=== PATIENT | female | born 1955 ===

== ENCOUNTER 2022-10-31 12:45 | Inpatient (IN) | payer MEDICARE, OTHER, SELFPAY ==
[2022-10-28 12:09] VITALS: BMI 29.7
[2022-10-30] VITALS (27 sets, daily range): BP systolic 58–139; BP diastolic 33–64; PULSE 60–83; RESP 11–23; TEMP 35.6–36.7; O2SAT 98–100; BMI 29.7
--- NOTE | 2022-10-30 | PATH_ITS ---
[facility] Accession Number: [id number] No. of containers..01 Tissue . 01 Material submitted: . uterus - UTERUS, BILATERAL FALLOPIAN, TUBES, LEFT OVARY . 01 Diagnosis: Uterus, Bilateral Fallopian Tubes and Left Ovary: Uterus, morcellated fragments, weight: 32 grams in aggregate. Inactive endometrium without evidence of atypia, hyperplasia or malignancy, in apprenticeship representative sections. Benign bilateral fallopian tubes and paratubal cyst. Benign ovary, left side. Negative for atypia and malignancy. MRV 11/07/2022 1434 Local . 01 Electronically signed: . Norma Coker MD, Pathologist NPI- [id number] . 01 Gross description: . The specimen is received in formalin labeled with the patient's name, , and uterus, bilateral fallopian tubes, left ovary consist of multiple morcellated fragments of pink-hagen uterine soft tissue aggregating to 6.8 x 5.5 x 2.5 cm and weighing 32 grams. A cervix is not identified. Minimal red-hagen endometrial tissue is noted measuring 2.1 x 0.5 cm. No polyps or lesions are seen. The tissue is sectioned to reveal an endometrium measuring 0.2 cm in thickness and a pale pink trabecular myometrium measuring 1.3 cm in thickness. No leiomyomatous nodules are seen. Also received in the container is a violaceous fimbriated fallopian tube with attached white-pink rubbery ovary. The fallopian tube measures 3.2 cm in length and 0.8 cm in diameter. A single serous fluid-filled, smooth lined paratubal cyst is noted measuring 0.4 cm in greatest dimension. The external surface is inked black. The corresponding ovary measures 1.7 x 1.1 x 0.7 cm and weighs 1 gram. The ovary is sectioned to reveal the usual pink-hagen homogeneous parenchyma with no cyst or lesion seen. Ciso sections are submitted as follows: A1: Endomyometrium. A2-A3: Fallopian tube, fimbriae and paratubal cyst entirely submitted. A4: Ovary. ([id number]) /MRV 11/04/2022 1222 Local . 01 Pathologist provided ICD-10: N81.10, N81.4 . 01 CPT . 457448 Specimen Comment: A courtesy copy of this report has been sent to [phone] Performed at: 01 [facility] [address] [place] [address], [place], [place] [id number] MD Geoff Bravo MD Phone: [phone]
[2022-10-30] MEDS: LACTATED RINGERS 1,000 ML 84 ML IV ×2 (12:40→14:47)
--- NOTE | 2022-10-30 13:45 | PM.PREOP ---
Pre-operative Note COVID-19 COVID-19 status: Not tested Criteria for continued procedure: Non-surgical alternatives not available or appropriate per current SOC Interval Note History & Physical reviewed/Exam performed by Physician: Yes Changes to H&P: No
[2022-10-30] MEDS: CEFAZOLIN 2 GM/100 ML PREMIX 100 ML IV (14:00)
--- NOTE | 2022-10-30 14:33 | SUR.OPER ---
Lithotomy on padded OR bed. [place] Pad Positioner under torso. Head on pillow, arms padded and tucked at sides. Legs secured in padded yellow fins stirrups.
[2022-10-30] MEDS: BUPIVACAINE 0.5% (PF) 30 ML, EPINEPHrine 0.15 MG INJ (14:43)
[2022-10-30] MEDS: ROPIVACAINE 0.2% PF 2 MG/ML 20ML AMP 20 ML INJ (17:08)
--- NOTE | 2022-10-30 18:31 | P.OP_ITS ---
Operative Date/Time/Diagnoses Date of procedure: 10/30/22 Time of procedure: 14:30 Pre-op diagnosis: Uterovaginal prolapse, incomplete Cystocele Post-op diagnosis: same Procedure & Clinicians Procedure: Procedures Operation Date: 10/30/22 13:30 Actual Procedure Side Surgeon p Total Laparoscopic Hysterectomy, bilateral salingectomy, left oophorectomy, Laparoscopic Uteral sacral vault suspension, repair of incidental cystotomy Pierre Tracy MD s Anterior Colporrhaphy Pierre Tracy MD Indications: Shelia is a 66-year-old , LMP in her early 40s at the time of endometrial ablation, who presents today for evaluation of an age 12 month history of vaginal bulging and pelvic pressure.? Patient experienced menarche at age 13 and had irregular menses through most of her reproductive life.? She would 1 spontaneous vaginal of a 7 lb 10 oz infant and subsequently had a section for compound presentation with the infant weighing 9 lb 5 oz. patient had a tubal ligation 1983 and in her early 40s underwent right salpingo oophorectomy with endometrial ablation.? She is had no vaginal bleeding since that time.? She developed menopausal symptoms in her early to mid 50s but has never been on hormone replacement therapy.? Patient's Paps have always been normal with her most recent in March of this year.? Her mammograms have also been normal and her mammogram is current.? Patient has noted bulging per vagina for the last 8-12 month associated with some pelvic pressure and also intercourse has become uncomfortable because of the prolapse.? Patient's bladder symptoms are limited to urinary frequency and urge incontinence which has been treated by her primary care using oxybutynin.? She is had good response to the oxybutynin but would prefer not to take any medications if not absolutely necessary. The origins of contributing factors for pelvic organ prolapse were discussed at length with the patient.? Also discussed was the nature of atrophic vaginitis and potential contributions to her bladder symptoms.? Written information provided to the patient regarding pelvic organ prolapse, pessary use, vaginal estrogen support, anterior colporrhaphy, and hysterectomy as part of prolapse treatment. After consideration of all options, the patient has decided to move forward with total laparoscopic hysterectomy, bilateral salpingo oophorectomy, laparoscopic uterosacral vault suspension, and anterior colporrhaphy.? She presents today for her scheduled surgery. Surgeon: Pierre Tracy Radiophone Operator: Bisi Hernandez Anesthesia Type: General Operative Notes Findings: The uterus is normal size and shape but the anterior surface is involved with dense adhesions involving the bladder which extend approximately 2[address] from the cervix up to the fundus. Both fallopian tubes demonstrates changes consistent with prior partial salpingectomy. The right ovary is surgically absent. The left ovary is normal in appearance. The posterior cul-de-sac is unremarkable and the appendix as visualized laparoscopically appears normal as well. The liver edge and visible diaphragm also appear normal. Cystoscopy at the completion of the case demonstrated excellent mucosa reapproximation at the location of the incidental cystotomy which was to the left side of the midline involving the dome of the bladder. No abnormalities of the trigone were seen other than slight inflammatory change. Vigorous jets of clear urine were seen spilling from each ureteral orifice. Closure Type: primary Specimen(s): right tube, left tube & ovary and uterus Applied: catheter Estimated blood loss (mL): 150 Blood products transfused: none Procedure in detail: With the patient under satisfactory general anesthesia in the modified dorsal lithotomy position, the perineum, vagina, and abdomen were prepped and draped in the usual manner. A pre-surgical safety time-out was then taken in accordance with [facility] OR protocols. A Dan catheter was inserted and a ttached to close drainage. A bivalve speculum was inserted in the vagina and the anterior lip of the cervix was grasped with a single-tooth tenaculum. A #1 PDS stitch was placed through the cervix for retrieval of the uterus, the endocervical canal was dilated, and a MetaModixare uterine manipulator with a medium cup was inserted and secured. The patient was repositioned and the inferior edge of the umbilicus was infiltrated with 0.5% Marcaine with epinephrine. A transverse incision of the skin inferior to the umbilicus was incised and a very as needed used to insufflate the abdomen with carbon dioxide. Once appropriately insufflated, a 5 mm trocar and sleeve were introduced through the incision and confirmation of correct placement was made by laparoscopic visualization of intra-abdominal viscera. A 2nd and 3rd 5 mm port was placed in the left and right mid quadrants and a 4th 5 mm port was placed deep in the right lower quadrant using transillumination after infiltration with 0.5% lid ocaine with epinephrine. Using a 4 puncture technique, the pelvis and abdomen were visualized with the findings as noted above. Attention was turned to the left adnexa with the left ovarian tube mobilized using a grasping forceps. A power Seal device was then used to coagulate and divide the infundibulopelvic ligament and the dissection was carried across the mesosalpinx to the cornua. Dissection downward across the round ligament on the left side was carried out using the power Seal device and dissection of the anterior cul-de-sac adhesions was undertaken on the lateral aspect. The adhesions involving the anterior surface of the uterus and bladder were carefully taken down with both sharp and blunt dissection but an area of marked attenuation of the bladder muscularis was encountered and a small linear rent in the bladder was noted. Once the rent was recognized verbal consult with Dr. Chandler Cárdenas (urology) was carried out in the operating room. Careful dissection of the adhesions surrounding the cystotomy was carried out to better visualize the cystotomy itself and to better effect laparoscopic repair. The rent in the bladder was open slightly and the bladder itself carefully inspected with the laparoscoped. The trigone was unaffected by the rent in the bladder wall and primary laparoscopic repair was deemed appropriate. The cystotomy was repaired in 3 layers with the 1st being 2-0 chromic interrupted (6) followed by over-sewing with 2-0 Vicryl (4) and finally a clump of retroperitoneal fat was placed over the repair line and held in place with 2-0 Vicryl sutures. Hydrodistention of the bladder was then carried out with sterile saline and no leakage was noted. Because of the extremely dense adhesions involving the base of the bladder to the cervix, the decision was made to alter the plan hysterectomy from total laparoscopic hysterectomy to supracervical hysterectomy and leave the cervix in-situ. The ascending uterine vessels on the left side were then secured with the power Seal device and attention was turned to the right adnexa. The distal right fallopian tube was grasped with a grasping forceps and the mesosalpinx coagulated with the power Seal device. The distal tube was removed through 1 of the 5 mm ports and the dissection was continued down to the cornua and across the round ligament down the lateral aspect of the uterus on the right side to the level of the endocervical canal. Once the ascending uterine vessels had been secured on the right side, a Ani loop was used to amputate the corpus. A 4 cm transverse incision along the line of the patient's old scar was then made and a 12 mm trocar and sleeve were introduced through the incision into the abdominal cavity. Using an Endo-Catch, the uterus was brought out through the incision, the incision slightly extended, and an Liliana self-retaining retractor introduced through the small incision. The uterus, and left tube and ovary were then morcellated and brought up through the incision to be submitted as an aggregate surgical specimen. The fascia was then closed with 0 Vicryl in a running stitch and the pelvis inspected carefully. The cervix was found to be hemostatic and small peritoneal bleeding points were easily secured with judicious use of monopolar cautery. The peritoneum was incised lateral to the uterosacral ligaments on both sides so as to mobilize the uterosacral ligaments and using 0 Ethibond suture suspension of the cervical stump to the uterosacral ligaments on both sides was accomplished with 2 sutures placed on each side using a sponge stick in the vagina to elevate the cervical stump. Inspection of the cervical stump and uterosacral ligaments demonstrated secure attachment bilaterally with excellent elevation of the cervix. Attention was then turned to the vaginal portion of the case and a weighted speculum inserted in the vagina. The midline of the anterior vaginal mucosa was identified with Allis clamps and infiltrated with 0.5% Marcaine with epinephrine. A longitudinal incision of the anterior vaginal wall was then performed with the underlying tissues dissected away from the vaginal mucosa with both sharp and blunt dissection. Once adequate exposure was achieved, 0 Vicryl interrupted were used to doubly plicate the vesicovaginal fascias and redundant vaginal mucosa was excised with Metzenbaum scissors. The mucosal incision was then closed with 2-0 Vicryl using a running interlocking stitch and hemostasis was excellent. The Dan catheter was removed and cystoscopy performed with a 70 degree scope. The entire bladder surface was careful visualized and vigorous jets in clear urine were seen coming from each ureteral meatus. The site of the cystotomy with pair was intact with excellent apposition of mucosal surfaces. No other abnormalities in the bladder were noted. A moistened vaginal pack was then inserted in the vagina and trimmed. The abdomen was then reinsufflated and patient placed again in Trendelenburg position so as to fully visualize the pelvis. No bleeding was noted in the pelvis or the abdomen and the operation was terminated by venting the pneumoperitoneum and removal of the laparoscopic sleeves. Each of the incisions were closed with 4-0 Monocryl using inverted interrupted stitches, skin glue was applied, followed by appropriate dressings. Patient was awakened from anes thesia and transferred to the PACU after having tolerated the procedure well. Complications: other (Incidental cystotomy; Urology consult in OR, laparoscopic repair, extended dan catheter drainage and cystogram prior to removal in 4 weeks) Post-operative Condition: stable Disposition: PACU Plan for aftercare: Routine post-op care. Extended dan catheter drainage and cystogram prior to removal in 4 weeks
[2022-10-30] MEDS: MORPHINE 4 MG/ML INJ IV (19:29)
[2022-10-30] MEDS: KETOROLAC 30 MG/ML VIAL IV (19:31)
[2022-10-30] MEDS: LACTATED RINGERS 1,000 ML 100 ML IV (19:32)
[2022-10-30] MEDS: LACTATED RINGERS 1,000 ML 1000 ML IV (19:50)
--- NOTE | 2022-10-30 20:37 | DI.CT.S_ITS ---
PROCEDURE: CT ABDOMEN PELVIS W CON INDICATIONS: Severe post-op low back pain TECHNIQUE: After the administration of oral and sagittal reformats were performed. For radiation dose reduction, the following was used: automated exposure control, adjustment of mA and/or kV according to patient size. COMPARISON: None. FINDINGS: Image quality: Excellent. Lung bases: There is mild dependent atelectasis. Heart: Heart is normal in size. ABDOMEN: Liver: No mass lesion. Gallbladder: Within normal limits without calcified gallstones. Biliary ducts: No biliary ductal dilatation. Pancreas: Unremarkable. Spleen: Normal in size. Adrenal Glands: No adrenal nodules. Kidneys and Ureters: No hydronephrosis. Stomach and Bowel: Stomach, small bowel loops, and colon are normal in caliber and wall thickness. Peritoneum: There is a large heterogeneous right-sided hematoma with retroperitoneal and intraperitoneal components. This measures approximately 21 cm in craniocaudal extent with financial sales representative transverse measurement of 12.7 x 7.9 cm superiorly on series 2, image 39 and 15.1 x 5.0 cm inferiorly on series 2, image 69. The collection demonstrates intrinsic mass effect on the inferior vena cava and common iliac veins with associated narrowing. No definite active arterial extravasation identified. Venous extravasation cannot be excluded. There are a few scattered foci of intraperitoneal free air consistent with recent surgery. Ventral Wall: No hernia. Abdominal Nodes: No retroperitoneal or mesenteric adenopathy by size criteria. Vessels: Aorta and inferior vena cava are normal in size. PELVIS: Pelvic Organs: The uterus is surgically absent. Bladder: There is a Montes catheter within a nondistended urinary bladder. Pelvic Nodes: No enlarged lymph nodes. Miscellaneous: No inguinal hernias are seen. Bones: Visualized osseous structures demonstrate no suspicious focal lesions. IMPRESSION: 1. Large right-sided hematoma with retroperitoneal and intraperitoneal components. No definite active arterial extravasation but venous extravasation cannot be excluded. Findings discussed with Dr. Tracy on 10/30/2022 at 11:26 p.m.. Dictated by: Geoff Torres M.D. on 10/30/2022 at 23:20 Approved by: Geoff Torres M.D. on 10/30/2022 at 23:31
[2022-10-30 20:38] LABS: Add Manual Diff / Slide Review NO; Basophils Absolute Auto 0 /uL (0-100); Basophils Percent Auto 0.2 % (0-2); Eosinophils Absolute Auto 0 /uL (0-450); Hematocrit 33.1 % (36-46); Hemoglobin 11.1 g/dL (12.0-16.0); Lymphocytes Absolute Auto 600 /uL (1100-4500); Mean Corpuscular HGB Conc 33.5 % (30-36); Mean Corpuscular Hemoglobin 28.9 PG (26-34); Mean Corpuscular Volume 86.4 fL (80-100); Monocytes Absolute Auto 100 /uL (0-900); Neutrophils Absolute Auto 11900 /uL (1500-7000); Neutrophils Percent Auto 93.8 % (50-75); Platelet Count 244 X10^3/uL (150-400); Red Blood Cell Count 3.82 X10^6/uL (4.0-5.2); Red Cell Distribution Width 14.1 % (11.6-14.8); White Blood Cell Count 12.7 X10^3/uL (4.5-11.0)
[2022-10-30] MEDS: LACTATED RINGERS 2,000 ML 1000 ML IV (21:30)
[2022-10-30 21:41] LABS: BUN Creatinine Ratio 18.8 (6-22); Blood Urea Nitrogen 13 mg/dL (7-17); Calcium 8.4 mg/dL (8.4-10.2); Carbon Dioxide 20 mmol/L (22-32); Chloride 104 mmol/L (98-107); Estimated Glomerular Filt Rate > 60 mL/min (>60); Glucose 178 mg/dL (80-110); HEMOLYSIS 29 (0-50); Potassium 3.6 mmol/L (3.4-5.1); Sodium 133 mmol/L (137-145)
[2022-10-30 21:53] LABS: Troponin I < 0.012 ng/mL (0.01-0.034)
--- NOTE | 2022-10-30 21:59 | PM.PN.1 ---
Subjective Subjective Date Patient Seen: 10/30/22 Time Patient Seen: 22:00 Interval history: Patient's pain since surgery, primarily localized to her low back, is out of proportion to what is typically expected following the type surgery performed earlier today. In addition, blood pressure is significantly lower than it was preoperatively and while she has not manifested any tachycardia, she does feel lightheaded when she up. She has a vaginal pack in place and is not having any obvious bleeding per vagina. Urine is clear but output seems to be falling somewhat. Exam Vital Signs (past 8 hours): - 10/30/22 18:32 10/30/22 18:37 10/30/22 18:43 Temperature 97.6 F 97.6 F 97.5 F L Pulse Rate 76 83 79 Respiratory Rate 14 14 11 L Blood Pressure 116/63 115/55 L 110/51 L Pulse Oximetry 98 99 100 Oxygen Delivery Method Room Air Room Air Room Air Oxygen Flow Rate 10/30/22 18:48 10/30/22 20:14 10/30/22 18:40 Temperature 96.0 F L Pulse Rate 75 63 62 Respiratory Rate 14 20 20 Blood Pressure 115/50 L 93/36 L 74/36 L Pulse Oximetry 99 100 99 Oxygen Delivery Method Room Air Oxygen Flow Rate 0 3 10/30/22 18:45 10/30/22 18:50 10/30/22 20:57 Temperature Pulse Rate 67 67 68 Respiratory Rate 20 20 20 Blood Pressure 82/38 L 93/44 L 58/33 L Pulse Oximetry 100 100 99 Oxygen Delivery Method Oxygen Flow Rate 3 2 3 10/30/22 21:10 10/30/22 21:20 10/30/22 20:03 Temperature Pulse Rate 60 62 Respiratory Rate 20 Blood Pressure 68/36 L 68/35 L Pulse Oximetry 100 100 Oxygen Delivery Method Room Air Oxygen Flow Rate 2 2 10/30/22 21:30 10/30/22 21:40 Temperature Pulse Rate 64 Respiratory Rate Blood Pressure 74/39 L 91/42 L Pulse Oximetry Oxygen Delivery Method Oxygen Flow Rate Oxygen Delivery Method Room Air Oxygen Flow Rate 2 Const General: cooperative and other (Pale) Nutritional Appearance: average body habitus Orientation: alert and oriented x3 HENMT Head: normal to inspection, atraumatic and abrasion Ears: hearing grossly normal bilaterally Face and sinus: face symmetric Eyes General: appearance normal, both eyes and all related structures Conjunctivae: conjunctivae normal Sclera: sclerae normal EOM: EOM intact bilaterally Neck Neck: normal visual inspection Resp Effort & Inspection: normal respiratory effort and able to speak in complete sentences Auscultation: clear to auscultation bilaterally Cardio Rate: regular rate Rhythm: regular rhythm Heart Sounds: S1 normal, S2 normal and no murmurs GI Inspection: normal to inspection and incision (Surgical dressings clean and dry) Palpation: soft, no hepatosplenomegaly and tender (Mild, diffuse postsurgical tenderness) Auscultation: hypoactive bowel sounds External Female Exam: other (No significant bleeding noted) Extrem General: no calf tenderness Psych Appearance: grossly normal Mental Status: mental status grossly normal Speech and Movement: speech and movement normal Mood: congruent mood Affect: normal affect Attitude: cooperative Thought Process: normal Thought Content: normal Judgment: judgment good Objective Imaging ABD/PELVIC CT: Radiologist's impression: PROCEDURE:? CT ABDOMEN PELVIS W CON ? INDICATIONS:? Severe post-op low back pain ? TECHNIQUE:? After the administration of oral and sagittal reformats were performed.? For radiation dose reduction, the following was used:? automated exposure control, adjustment of mA and/or kV according to patient size. ? COMPARISON:? None. ? FINDINGS:? Image quality:? Excellent.? ? Lung bases:? There is mild dependent atelectasis.? ? Heart:? Heart is normal in size. ? ? ABDOMEN: Liver:? No mass lesion. Gallbladder:? Within normal limits without calcified gallstones.? ? Biliary ducts:? No biliary ductal dilatation.? ? Pancreas:? Unremarkable.? ? Spleen:? Normal in size.? ? Adrenal Glands:? No adrenal nodules.? ? Kidneys and Ureters:? No hydronephrosis.? ? ? Stomach and Bowel:? Stomach, small bowel loops, and colon are normal in caliber and wall thickness.? Peritoneum:? There is a large heterogeneous right-sided hematoma with retroperitoneal and intraperitoneal components.? This measures approximately 21 cm in craniocaudal extent with wireless sales representative transverse measurement of 12.7 x 7.9 cm superiorly on series 2, image 39 and 15.1 x 5.0 cm inferiorly on series 2, image 69. The collection demonstrates intrinsic mass effect on the inferior vena cava and common iliac veins with associated narrowing.? No definite active arterial extravasation identified.? Venous extravasation cannot be excluded.? There are a few scattered foci of intraperitoneal free air consistent with recent surgery. ? Ventral Wall: ? No hernia.? Abdominal Nodes:? No retroperitoneal or mesenteric adenopathy by size criteria.? Vessels:? Aorta and inferior vena cava are normal in size.? ? PELVIS: Pelvic Organs:? The uterus is surgically absent. Bladder:? There is a Montes catheter within a nondistended urinary bladder.? ? Pelvic Nodes: No enlarged lymph nodes.? Miscellaneous: No inguinal hernias are seen. ? ? ? Bones:? Visualized osseous structures demonstrate no suspicious focal lesions. ? IMPRESSION:? ? 1. Large right-sided hematoma with retroperitoneal and intraperitoneal components.? No definite active arterial extravasation but venous extravasation cannot be excluded. Labs 10/31/22 06:05 10/30/22 20:33 Labs: Laboratory Results - last 24 hr 10/30/22 10/30/22 10/30/22 20:33 20:33 20:33 WBC 12.7 H RBC 3.82 L Hgb 11.1 L Hct 33.1 L MCV 86.4 MCH 28.9 MCHC 33.5 RDW 14.1 Plt Count 244 Neut % (Auto) 93.8 H Lymph % (Auto) 5.0 L Yancey % (Auto) 1.0 L Eos % (Auto) 0.0 L Baso % (Auto) 0.2 Neut # (Auto) 72967 H Lymph # (Auto) 600 L Yancey # (Auto) 100 Eos # (Auto) 0 Baso # (Auto) 0 Sodium 133 L Potassium 3.6 Chloride 104 Carbon Dioxide 20 L BUN 13 Creatinine 0.69 Estimated GFR > 60 BUN/Creatinine Ratio 18.8 Glucose 178 H Calcium 8.4 Troponin I < 0.012 [facility] Medical History (Updated 10/31/22 @ 12:21 by Pierre Tracy MD) Chicken pox Fractures History of urinary incontinence Irregular menstrual cycle Measles Mumps Osteoporosis Swallowing difficulty (~2020) Tinnitus Vertigo Vitiligo (~2018) Wears glasses Surgical History (Updated 09/22/22 @ 20:25 by Marianela Dwyer) Anesthesia History of ankle surgery History of section (~1980) History of removal of ovarian cyst History of shoulder surgery (~01/2007) History of surgery on wrist (~2016) Family History (Updated 09/22/22 @ 20:33 by Marianela Dwyer) Father Cancer Smoker Mother Hyperlipidemia Smoker Sister Cancer Diabetes mellitus Smoker Grandfather History of heart disease Smoker Grandmother Smoker Grandfather Vertigo History of heart disease Grandmother Prediabetes Uncle Cancer Smoker Social History household members: spouse Smoking Status: Never smoker alcohol intake: never Assessment & Plan Assessment and plan (1) Postoperative hypotension: Status: Acute Plan Stat CBC obtained with hemoglobin/hematocrit . Critical care consultation who recommends transfer to ICU for pressor therapy and evaluation for potential postoperative bleeding sources Stat abdominopelvic CT w/IV contrast Assessment & Plan narrative: ASSESSMENT Post-op pelvic hematoma w/ hypotension PLAN Transfer to ICU for pressor therapy per critical respiratory care specialist T&C 4 U PRBC w/ plans to transfuse 2U stat IV TXA 1000mg x 2 doses Abdominal binder Reassess CBC in 6 hours with close monitoring of BP/output in ICU environment overnight Time Spent With Patient Time with patient: 30 to 49 minutes with 50% spent counseling/coordinating care
[2022-10-30] MEDS: NOREPINEPHRINE BITARTRATE/D5W 4 MG/250 ML PLAST..BAG 25.855 MG IV (22:31)
[2022-10-30] MEDS: fentaNYL 100 MCG/2 ML INJ 50 MCG IV (22:52)
[2022-10-30] MEDS: ONDANSETRON 4 MG/2 ML INJ IV (22:52)
[2022-10-31] VITALS (25 sets, daily range): BP systolic 94–127; BP diastolic 46–61; PULSE 62–83; RESP 11–25; TEMP 36.2–37.5; O2SAT 94–100
[2022-10-31] MEDS: TRANEXAMIC ACID 1,000 MG in SODIUM CHLORIDE 0.9% 100 ML 200 MG IV ×2 (00:33→04:57)
--- NOTE | 2022-10-31 02:18 | PC.NURSE ---
2215- Pt transferred to room [address] Scan obtained. Levophed gtt started per order and patient medicated for pain. Patient is alert and oriented appearance is pale. C/O nausea with any movement. Lungs are clear, BT are present. Lap sites are CDI. Montes is draining clear melita urine. Will monitor.
--- NOTE | 2022-10-31 05:46 | PC.NURSE ---
Pt arrived from PACU at 1900, BP 135/54. Vitals monitored per post-op protocol. BP 88/32 ~2030, provider notified. Orders for labs and bolus given. BP unresponsive to bolus, sent Pt to CT and transferred to ICU as ordered.
[2022-10-31 06:20] LABS: Add Manual Diff / Slide Review NO; Basophils Absolute Auto 100 /uL (0-100); Basophils Percent Auto 0.4 % (0-2); Eosinophils Absolute Auto 0 /uL (0-450); Hematocrit 34.5 % (36-46); Hemoglobin 11.8 g/dL (12.0-16.0); Lymphocytes Absolute Auto 700 /uL (1100-4500); Lymphocytes Percent Auto 4.4 % (25-40); Mean Corpuscular HGB Conc 34.1 % (30-36); Mean Corpuscular Hemoglobin 29.7 PG (26-34); Mean Corpuscular Volume 87.1 fL (80-100); Monocytes Absolute Auto 1000 /uL (0-900); Neutrophils Absolute Auto 13100 /uL (1500-7000); Neutrophils Percent Auto 88.2 % (50-75); Platelet Count 187 X10^3/uL (150-400); Red Blood Cell Count 3.96 X10^6/uL (4.0-5.2); Red Cell Distribution Width 14.1 % (11.6-14.8); White Blood Cell Count 14.8 X10^3/uL (4.5-11.0)
[2022-10-31 06:26] LABS: Magnesium 1.7 mg/dL (1.6-2.3)
[2022-10-31] MEDS: fentaNYL 100 MCG/2 ML INJ 50 MCG IV (07:29)
[2022-10-31] MEDS: OXYBUTYNIN 5 MG ER TAB 10 MG PO (08:37)
[2022-10-31] MEDS: FAMOTIDINE 20 MG/2 ML VIAL IV ×2 (08:37→20:50)
[2022-10-31] MEDS: DOCUSATE 100 MG CAPSULE 200 MG PO ×2 (08:37→20:50)
--- NOTE | 2022-10-31 12:28 | P.PN_ITS ---
Subjective Subjective Date Patient Seen: 10/31/22 Time Patient Seen: 07:15 Interval history: Patient has done well overnight with stabilization of her blood pressure. Vaginal pack removed with minimal staining. Repeat CBC this a.m. shows relatively stable H&H and mildly elevated WBC. Patient is passing gas and her catheter is draining well. Exam Vital Signs (past 8 hours): - 10/31/22 05:00 10/31/22 05:30 10/31/22 06:25 Temperature 98.0 F 98.0 F Pulse Rate 66 68 78 Respiratory Rate 14 14 17 Blood Pressure 114/55 L 121/57 L 115/59 L Pulse Oximetry 99 99 Oxygen Delivery Method Oxygen Flow Rate 2 2 Fraction of Inspired Oxygen 10/31/22 06:11 10/31/22 07:31 10/31/22 08:44 Temperature 98.2 F Pulse Rate 70 78 Respiratory Rate 22 Blood Pressure 100/51 L Pulse Oximetry 98 98 Oxygen Delivery Method Nasal Cannula Nasal Cannula Oxygen Flow Rate 1.5 Fraction of Inspired Oxygen 26 10/31/22 10:00 Temperature Pulse Rate Respiratory Rate Blood Pressure Pulse Oximetry Oxygen Delivery Method Nasal Cannula Oxygen Flow Rate Fraction of Inspired Oxygen Fraction of Inspired Oxygen 26 SaO2/FiO2 Ratio 376 Oxygen Delivery Method Nasal Cannula Oxygen Flow Rate 1.5 Const General: cooperative and comfortable Nutritional Appearance: average body habitus Orientation: alert and oriented x3 HENMT Head: normal to inspection, atraumatic and abrasion Ears: hearing grossly normal bilaterally Face and sinus: face symmetric Eyes General: appearance normal, both eyes and all related structures Conjunctivae: conjunctivae normal Sclera: sclerae normal EOM: EOM intact bilaterally Neck Neck: normal visual inspection Resp Effort & Inspection: normal respiratory effort and able to speak in complete sentences Auscultation: clear to auscultation bilaterally Cardio Rate: regular rate Rhythm: regular rhythm Heart Sounds: S1 normal, S2 normal and no murmurs GI Inspection: normal to inspection and incision (Surgical dressings clean and dry) Palpation: soft, no hepatosplenomegaly and tender (Mild, diffuse postsurgical tenderness) External Female Exam: other (No significant bleeding noted) Extrem General: no calf tenderness Psych Appearance: grossly normal Mental Status: mental status grossly normal Speech and Movement: speech and movement normal Mood: congruent mood Affect: normal affect Attitude: cooperative Thought Process: normal Thought Content: normal Judgment: judgment good Objective Labs 11/01/22 05:50 10/30/22 20:33 Labs: Laboratory Results - last 24 hr 10/30/22 10/30/22 10/30/22 20:33 20:33 20:33 WBC 12.7 H RBC 3.82 L Hgb 11.1 L Hct 33.1 L MCV 86.4 MCH 28.9 MCHC 33.5 RDW 14.1 Plt Count 244 Neut % (Auto) 93.8 H Lymph % (Auto) 5.0 L [place] % (Auto) 1.0 L Eos % (Auto) 0.0 L Baso % (Auto) 0.2 Neut # (Auto) 96538 H Lymph # (Auto) 600 L [place] # (Auto) 100 Eos # (Auto) 0 Baso # (Auto) 0 Sodium 133 L Potassium 3.6 Chloride 104 Carbon Dioxide 20 L BUN 13 Creatinine 0.69 Estimated GFR > 60 BUN/Creatinine Ratio 18.8 Glucose 178 H Calcium 8.4 Magnesium Troponin I < 0.012 Blood Type Antibody Screen Crossmatch 10/31/22 10/31/22 10/31/22 00:15 06:05 06:05 WBC 14.8 H RBC 3.96 L Hgb 11.8 L Hct 34.5 L MCV 87.1 MCH 29.7 MCHC 34.1 RDW 14.1 Plt Count 187 Neut % (Auto) 88.2 H Lymph % (Auto) 4.4 L [place] % (Auto) 7.0 Eos % (Auto) 0.0 L Baso % (Auto) 0.4 Neut # (Auto) 30906 H Lymph # (Auto) 700 L [place] # (Auto) 1000 H Eos # (Auto) 0 Baso # (Auto) 100 Sodium Potassium Chloride Carbon Dioxide BUN Creatinine Estimated GFR BUN/Creatinine Ratio Glucose Calcium Magnesium 1.7 Troponin I Blood Type A Positive Antibody Screen Negative Crossmatch See Detail [facility] Medical History (Updated 11/01/22 @ 10:19 by Pierre Tracy MD) Chicken pox Fractures History of urinary incontinence Irregular menstrual cycle Measles Mumps Osteoporosis Swallowing difficulty (~2020) Tinnitus Vertigo Vitiligo (~2018) Wears glasses Surgical History (Updated 09/22/22 @ 20:25 by Marianela Dwyer) Anesthesia History of ankle surgery History of section (~1980) History of removal of ovarian cyst History of shoulder surgery (~01/2007) History of surgery on wrist (~2017) Family History (Updated 09/22/22 @ 20:33 by Marianela Dwyer) Father Cancer Smoker Mother Hyperlipidemia Smoker Sister Cancer Diabetes mellitus Smoker Grandfather History of heart disease Smoker Grandmother Smoker Grandfather Vertigo History of heart disease Grandmother Prediabetes Uncle Cancer Smoker Social History household members: spouse Smoking Status: Never smoker alcohol intake: never Assessment & Plan Assessment and plan (1) Acute postoperative anemia due to greater than expected blood loss: Status: Acute Plan Will repeat CBC later this afternoon to assess stability of her H&H. Urinalysis to rule out bacteriuria Further decisions regarding evaluation and treatment will be based on those results. Time Spent With Patient Time with patient: less than 30 minutes
[2022-10-31] MEDS: IBUPROFEN 600 MG TABLET PO ×2 (12:33→17:55)
[2022-10-31] MEDS: ACETAMINOPHEN 325 MG TABLET 650 MG PO ×2 (12:33→17:55)
[2022-10-31] MEDS: KETOROLAC 30 MG/ML VIAL IV (13:33)
[2022-10-31] MEDS: OXYCODONE IR 5 MG TABLET PO ×2 (13:41→20:50)
--- NOTE | 2022-10-31 14:11 | CM.DANOTE ---
Discharge Assessment Note: Case reviewed, met with patient and spouse; introduced self and role. Payer: Medicare and [facility] PCP: Fadumo Bryson 66 year old female admitted for BUR[place] 10/30/22. Hypotension developed and required Levophed drip. She has an indwelling dan catheter that she states she will return home with. Spouse Fredy in room, they live in [facility] and she is normally independent, active and drives. Supportive family. Plan: When medically stable, return home to care of who is able to assist her as needed. J Discharge Planning/Care Management Advanced directive, confirm from FAMILY Start: 10/30/22 19:29 Freq: Q24H Status: Active Protocol: Document 10/30/22 19:29 CT (Rec: 10/31/22 02:59 CT [id number]) Advance Directive, confirm on record Time 19:05 Person contacted Patient/family Copy received No CM Discharge Assessment Start: 10/31/22 13:46 Freq: Status: Active Protocol: Document 10/31/22 14:07 SJ (Rec: 10/31/22 14:11 [id number]) Discharge Planning Assessment Assigned Want Ad Receiver Tasha Pan RN/AUDI Advance Directives? No Advance Directives on File No History Provided By Patient Prior Living Arrangements House Household Members spouse Type of transporation used prior to Drives own vehicle admit Independent with ADL's Yes Is patient alert and oriented? Yes Caregiver for Another No Barriers to Discharge No Discharge Plan Home Referrals Initiated None needed Review Status In Process Next Review Type Continued Stay Review Pre-Anesthesia Assessment Start: 10/16/22 07:21 Freq: Status: Active Protocol: Document 10/28/22 12:09 TC (Rec: 10/16/22 08:37 CAB [id number]) Pre-Anesthesia Assessment Preferred Name Shelia Patient Information Reviewed Via Chart Review Assessment Completed With Patient H&P Completed Within 30 Days Yes Primary Care Provider Fadumo Bryson Seen Specialist in Last 12 Months Yes Specialist Seen Bench Grinder Primary Language [place] Preferred Language [place] Prosthetist Required No Height 152.4 cm Weight 68.946 kg Body Mass Index (BMI) 29.7 Visual Assist Glasses Hx Anesthesia Reactions Yes: hx of O2 slow to return to normal level Hx Family Anesthesia Reaction No Hx Malignant Hyperthermia No Hx Blood Transfusions No Hx Blood Transfusion Reaction No Anesthesia Review Requested No Makeup Sales Consultant No Smoking Status Never smoker Patient is completely paralyzed or No completely immobile Is patient on oxygen? No Does patient have THOMPSON/SOB No Hx Sleep Apnea No CPAP/BIPAP use not prescribed Suspected Sleep Apnea No Currently Taking a Beta Nallely No Anti-Coagulant Therapy No Has a Sand Blaster No Cardiac Testing No Hx Pacemaker/ICD No Pacemaker Rep Required? No Cardiac Clearance Received Not Applicable Dysphagia Yes Genitourinary Symptoms Frequency,Pelvic Pain Chronic UTI No Bladder Pattern Incontinent Urinary Catheter Present No Hx Urinary Self Catheterization No Comment oxybutynin Diabetes No Patient No Lactating No Patient Discharge Plan Description Return Home Health Care Proxy/Next of Kin Carine (sister) Health Care Proxy
[2022-10-31 14:30] LABS: Add Manual Diff / Slide Review NO; Basophils Absolute Auto 100 /uL (0-100); Basophils Percent Auto 0.6 % (0-2); Eosinophils Absolute Auto 0 /uL (0-450); Hematocrit 31.1 % (36-46); Hemoglobin 10.5 g/dL (12.0-16.0); Lymphocytes Absolute Auto 1500 /uL (1100-4500); Lymphocytes Percent Auto 8.8 % (25-40); Mean Corpuscular HGB Conc 33.8 % (30-36); Mean Corpuscular Hemoglobin 29.6 PG (26-34); Mean Corpuscular Volume 87.6 fL (80-100); Monocytes Absolute Auto 1800 /uL (0-900); Monocytes Percent Auto 11.1 % (3-14); Neutrophils Absolute Auto 13300 /uL (1500-7000); Neutrophils Percent Auto 79.5 % (50-75); Platelet Count 191 X10^3/uL (150-400); Red Blood Cell Count 3.55 X10^6/uL (4.0-5.2); Red Cell Distribution Width 14.1 % (11.6-14.8); White Blood Cell Count 16.7 X10^3/uL (4.5-11.0)
[2022-10-31] MEDS: MAGNESIUM CHLORIDE 64 MG TABLET 128 MG PO (15:05)
[2022-10-31 18:40] LABS: Appearance Urine UA CLEAR; Bilirubin Urine UA NEGATIVE (NEGATIVE); Color Urine UA YELLOW; Glucose Urine UA NEGATIVE (Negative); Ketones Urine UA NEGATIVE (NEGATIVE); Leukocyte Esterase Urine UA NEGATIVE (NEGATIVE); Nitrite Urine UA NEGATIVE (Negative); Occult Blood Urine UA 2+ (Negative); Protein Urine UA NEGATIVE (Negative); Urobilinogen Urine UA 0.2 E.U./dL (0.2)
[2022-10-31 18:48] LABS: pH Urine UA 5.5 (4.5-8.0)
[2022-10-31 18:51] LABS: Bacteria Urine None Seen; Culture Indicated Urine Cult Not Indicated; Hyaline Casts Urine 0-1/LPF; RBC Urine 1-5/HPF (0-5/HPF); Squamous Epithelial Cell Urine 1-5 /HPF (0-5/HPF); WBC Urine 1-5/HPF (0-5/HPF)
[2022-11-01 04:21] VITALS: BP 96/50; PULSE 62; RESP 15; TEMP 36.3; O2SAT 93
[2022-11-01] MEDS: ACETAMINOPHEN 325 MG TABLET 650 MG PO ×2 (06:03→13:30)
[2022-11-01] MEDS: IBUPROFEN 600 MG TABLET PO ×2 (06:03→13:30)
[2022-11-01 06:12] LABS: Add Manual Diff / Slide Review NO; Basophils Absolute Auto 0 /uL (0-100); Basophils Percent Auto 0.3 % (0-2); Eosinophils Absolute Auto 100 /uL (0-450); Eosinophils Percent Auto 0.5 % (2-4); Hematocrit 26.4 % (36-46); Lymphocytes Absolute Auto 2300 /uL (1100-4500); Lymphocytes Percent Auto 17.7 % (25-40); Mean Corpuscular HGB Conc 34.1 % (30-36); Mean Corpuscular Hemoglobin 29.7 PG (26-34); Mean Corpuscular Volume 87.1 fL (80-100); Monocytes Absolute Auto 1200 /uL (0-900); Monocytes Percent Auto 9.3 % (3-14); Neutrophils Absolute Auto 9300 /uL (1500-7000); Neutrophils Percent Auto 72.2 % (50-75); Platelet Count 160 X10^3/uL (150-400); Red Blood Cell Count 3.03 X10^6/uL (4.0-5.2); Red Cell Distribution Width 14.3 % (11.6-14.8); White Blood Cell Count 12.9 X10^3/uL (4.5-11.0)
[2022-11-01] MEDS: DOCUSATE 100 MG CAPSULE 200 MG PO (08:16)
[2022-11-01] MEDS: FAMOTIDINE 20 MG/2 ML VIAL IV (08:16)
[2022-11-01] MEDS: OXYBUTYNIN 5 MG ER TAB 10 MG PO (08:16)
[2022-11-01 09:52] VITALS: BP 112/55; PULSE 66; RESP 16; O2SAT 91
--- NOTE | 2022-11-01 10:20 | P.DS_ITS ---
History of Present Illness History of Present Illness Date Patient Seen: 11/01/22 Time Patient Seen: 10:20 Chief complaint: Uterovaginal prolapse, cystocele Narrative: Shelia is a 66-year-old , LMP in her early 40s at the time of endometrial ablation, who presents today for evaluation of an age 12 month history of vaginal bulging and pelvic pressure.? Patient experienced menarche at age 13 and had irregular menses through most of her reproductive life.? She would 1 spontaneous vaginal of a 7 lb 10 oz infant and subsequently had a section for compound presentation with the infant weighing 9 lb 5 oz. patient had a tubal ligation 1983 and in her early 40s underwent right salpingo oophorectomy with endometrial ablation.? She is had no vaginal bleeding since that time.? She developed menopausal symptoms in her early to mid 50s but has never been on hormone replacement therapy.? Patient's Paps have always been normal with her most recent in March of this year.? Her mammograms have also been normal and her mammogram is current.? Patient has noted bulging per vagina for the last 8-12 month associated with some pelvic pressure and also intercourse has become uncomfortable because of the prolapse.? Patient's bladder symptoms are limited to urinary frequency and urge incontinence which has been treated by her primary care using oxybutynin.? She is had good response to the oxybutynin but would prefer not to take any medications if not absolutely necessary. The origins of contributing factors for pelvic organ prolapse were discussed at length with the patient.? Also discussed was the nature of atrophic vaginitis and potential contributions to her bladder symptoms.? Written information provided to the patient regarding pelvic organ prolapse, pessary use, vaginal estrogen support, anterior colporrhaphy, and hysterectomy as part of prolapse treatment. After consideration of all options, the patient has decided to move forward with total laparoscopic hysterectomy, bilateral salpingo oophorectomy, laparoscopic uterosacral vault suspension, and anterior colporrhaphy.? She presents today for her scheduled surgery. Discharge Providers Provider Date of admission: 10/31/22 12:45 Discharge Date: 11/01/22 Primary care physician: MATTIE Segal Consults: Critical care Discharge provider: Pierre Tracy MD Summary Hospital Course Discharge Diagnosis: Status post laparoscopic supracervical hysterectomy with laparoscopic uterosacral ligament vaginal suspension, laparoscopic repair of incidental cystotomy, and anterior repair Postoperative hypotension due to excessive blood loss Anemia, due to excessive operative blood loss Hospital Course: Shelia was admitted on 10/30/2022 for scheduled total laparoscopic hysterectomy with left salpingo-oophorectomy and right salpingectomy along with laparoscopic uterosacral ligament vault suspension and anterior colporrhaphy. During the course of her surgery however an injury to the bladder dome occurred which required laparoscopic repair. Full details of the procedure well summarized on my operative note of that date. Following the procedure the patient did initially did well but on the 1st evening postop, patient developed progressive hypotension despite maintaining a normal baseline heart rate and only a slightly lowered hemoglobin and hematocrit. CT of the pelvis and abdomen however showed retroperitoneal hematoma formation on the right side. Patient was transferred to the ICU for pressor therapy, IV TXA x 2 doses, transfused 2 units of packed red blood cells and an abdominal binder applied. The patient's blood pressure stabilized nicely with these measures and her condition has markedly improved over the ensuing 36 hours. Her hemoglobin and hematocrit continued to fall slightly but despite the slight drop, clinically she was markedly improved. She also received 300 mg of iron sucrose intravenously. She has had good return of bowel function and her Montes catheter is draining clear urine which is negative for bacterial contamination. She will be discharged as this time to home in an afebrile normotensive condition after counseling regarding precautionary symptoms, limitations of activity, medications, and plans for follow-up. She will have a follow-up CBC performed on the morning of 11/03/2022 and if her he moglobin and hematocrit continue to falls significantly, she will be referred to [facility] for embolization of bleeding point(s). Medications at discharge will include oxycodone 5 mg every 6 hours as needed for pain and Macrodantin 100 mg p.o. q.d. for UTI prophylaxis. Patient will be contacted with results of her CBC on the morning of 11/03/2022 and further decisions regarding evaluation/treatment will be based on those findings. Status at Discharge Cognitive/behavioral status at discharge: oriented Functional status at discharge: independent ambulation Overall status at discharge: patient is progressing back to baseline Time Spent with Patient Time spent: Less than 30 minutes Exam Vital Signs (past 8 hours): - 11/01/22 04:21 11/01/22 07:00 11/01/22 09:52 Temperature 97.3 F L Pulse Rate 62 66 Respiratory Rate 15 16 Blood Pressure 96/50 L 112/55 L Pulse Oximetry 93 91 Oxygen Delivery Method Room Air Fraction of Inspired Oxygen 26 SaO2/FiO2 Ratio 376 Oxygen Delivery Method Room Air Oxygen Flow Rate 0 Const General: cooperative and comfortable Nutritional Appearance: average body habitus Orientation: alert and oriented x3 HENMT Head: normal to inspection, atraumatic and abrasion Ears: hearing grossly normal bilaterally Face and sinus: face symmetric Eyes General: appearance normal, both eyes and all related structures Conjunctivae: conjunctivae normal Sclera: sclerae normal EOM: EOM intact bilaterally Neck Neck: normal visual inspection Resp Effort & Inspection: normal respiratory effort and able to speak in complete sentences Auscultation: clear to auscultation bilaterally Cardio Rate: regular rate Rhythm: regular rhythm Heart Sounds: S1 normal, S2 normal and no murmurs GI Inspection: normal to inspection and incision (Surgical dressings clean and dry) Palpation: soft, no hepatosplenomegaly and tender (Mild, diffuse postsurgical tenderness) Auscultation: normal bowel sounds External Female Exam: other (No significant bleeding noted) Extrem General: no calf tenderness Psych Appearance: grossly normal Mental Status: mental status grossly normal Speech and Movement: speech and movement normal Mood: congruent mood Affect: normal affect Attitude: cooperative Thought Process: normal Thought Content: normal Judgment: judgment good Objective Labs 11/01/22 05:50 10/30/22 20:33 Labs: Laboratory Results - last 24 hr 10/31/22 10/31/22 11/01/22 14:20 18:24 05:50 WBC 16.7 H 12.9 H RBC 3.55 L 3.03 L Hgb 10.5 L 9.0 L Hct 31.1 L 26.4 L MCV 87.6 87.1 MCH 29.6 29.7 MCHC 33.8 34.1 RDW 14.1 14.3 Plt Count 191 160 Neut % (Auto) 79.5 H 72.2 Lymph % (Auto) 8.8 L 17.7 L [place] % (Auto) 11.1 9.3 Eos % (Auto) 0.0 L 0.5 L Baso % (Auto) 0.6 0.3 Neut # (Auto) 50140 H 9300 H Lymph # (Auto) 1500 2300 [place] # (Auto) 1800 H 1200 H Eos # (Auto) 0 100 Baso # (Auto) 100 0 Urine Color Yellow Urine Appearance Clear Urine pH 5.5 Ur Specific [place] 1.020 Urine Protein Negative Urine Glucose (UA) Negative Urine Ketones Negative Urine Occult Blood 2+ H Urine Nitrate Negative Urine Bilirubin Negative Urine Urobilinogen 0.2 Ur Leukocyte Esterase Negative Urine RBC 1-5/hpf Urine WBC 1-5/hpf Ur Squamous Epith Cells 1-5 /hpf Urine Bacteria None seen Hyaline Casts 0-1/lpf Ur Culture Indicated? Cult not indicated PFS Medical History (Updated 11/01/22 @ 10:19 by Pierre Tracy MD) Chicken pox Fractures History of urinary incontinence Irregular menstrual cycle Measles Mumps Osteoporosis Swallowing difficulty (~2020) Tinnitus Vertigo Vitiligo (~2018) Wears glasses Surgical History (Updated 09/22/22 @ 20:25 by Marianela Dwyer) Anesthesia History of ankle surgery History of section (~1980) History of removal of ovarian cyst History of shoulder surgery (~01/2007) History of surgery on wrist (~2016) Family History (Updated 09/22/22 @ 20:33 by Marianela Dwyer) Father Cancer Smoker Mother Hyperlipidemia Smoker Sister Cancer Diabetes mellitus Smoker Grandfather History of heart disease Smoker Grandmother Smoker Grandfather Vertigo History of heart disease Grandmother Prediabetes Uncle Cancer Smoker Social History household members: spouse Smoking Status: Never smoker alcohol intake: never Discharge Plan Discharge Plan Patient Disposition: Home Provider Discharge Comment: Please review the written discharge instructions you received when you were discharged from the hospital. An order has been placed for a repeat CBC (complete blood count) to be performed on ThursdayNovember 03 at the [facility] lab. I will contact you with those results and if your counts are continuing to fall significantly, I will make arrangements for you to be seen at [facility] to embolize the point of continued internal oozing following her surgery. Your postop visit will be scheduled for 2 weeks after your surgery but I will be happy to see you earlier as needed be. If you have any questions, concerns, or problems please contact me directly by cell phone at [phone], via the office phone at [phone], or via the patient portal. Discharge orders & Medications Prescriptions: New oxycodone 5 mg Tablet 5 mg PO Q4HR PRN (Reason: Pain, Moderate (4-6)) Qty: 12 0RF nitrofurantoin macrocrystal [Macrodantin] 100 mg capsule 100 mg PO BEDTIME Qty: 30 0RF Rx Instructions: must administer with a meal/food Continued estradiol 0.01 % (0.1 mg/gram) cream 1 g vaginal 3XW Qty: 42.5 12RF Rx Instructions: Apply 1 g PV hs x7 days, then PV hs 3 nights weekly oxybutynin chloride 10 mg tablet extended release 24hr 10 mg PO DAILY Follow up/Referrals: Fadumo Bryson ARNP [Primary Care Provider] - Pierre Tracy MD [Physician] - Discharge Health Status Multidrug resistant organism: No MDRO Diet/Activity/Treatments Diet: Diet as Tolerated Activity: As tolerated Skin/Wound/Dressing Care Report to your healthcare provider any signs of infection, such as:: chills, fever, increased pain, unusual drainage and unusual redness Dressing: Dressings should be removed on the morning of 11/02/2022 Visit Report/Discharge Packet Instructions: DI for Hysterectomy, DI for Laparoscopy, DI for Prescription Opioid Use Stand Alone Forms: Surgery Discharge Discharge Data Primary Care Provider: Fadumo Bryson
--- NOTE | 2022-11-01 10:47 | P.DS_ITS ---
History of Present Illness History of Present Illness Date Patient Seen: 11/01/22 Time Patient Seen: 09:40 Chief complaint: Uterovaginal prolapse, cystocele Narrative: Shelia is a 66-year-old , LMP in her early 40s at the time of endometrial ablation, who presents today for evaluation of an age 12 month history of vaginal bulging and pelvic pressure.? Patient experienced menarche at age 13 and had irregular menses through most of her reproductive life.? She would 1 spontaneous vaginal of a 7 lb 10 oz infant and subsequently had a section for compound presentation with the infant weighing 9 lb 5 oz. patient had a tubal ligation 1983 and in her early 40s underwent right salpingo oophorectomy with endometrial ablation.? She is had no vaginal bleeding since that time.? She developed menopausal symptoms in her early to mid 50s but has never been on hormone replacement therapy.? Patient's Paps have always been normal with her most recent in March of this year.? Her mammograms have also been normal and her mammogram is current.? Patient has noted bulging per vagina for the last 8-12 month associated with some pelvic pressure and also intercourse has become uncomfortable because of the prolapse.? Patient's bladder symptoms are limited to urinary frequency and urge incontinence which has been treated by her primary care using oxybutynin.? She is had good response to the oxybutynin but would prefer not to take any medications if not absolutely necessary. The origins of contributing factors for pelvic organ prolapse were discussed at length with the patient.? Also discussed was the nature of atrophic vaginitis and potential contributions to her bladder symptoms.? Written information provided to the patient regarding pelvic organ prolapse, pessary use, vaginal estrogen support, anterior colporrhaphy, and hysterectomy as part of prolapse treatment. After consideration of all options, the patient has decided to move forward with total laparoscopic hysterectomy, bilateral salpingo oophorectomy, laparoscopic uterosacral vault suspension, and anterior colporrhaphy.? She presents today for her scheduled surgery. Discharge Providers Provider Date of admission: 10/31/22 12:45 Discharge Date: 11/01/22 Primary care physician: MATTIE Segal Discharge provider: Pierre Tracy MD Exam Vital Signs (past 8 hours): - 11/01/22 04:21 11/01/22 07:00 11/01/22 09:52 Temperature 97.3 F L Pulse Rate 62 66 Respiratory Rate 15 16 Blood Pressure 96/50 L 112/55 L Pulse Oximetry 93 91 Oxygen Delivery Method Room Air Fraction of Inspired Oxygen 26 SaO2/FiO2 Ratio 376 Oxygen Delivery Method Room Air Oxygen Flow Rate 0 Objective Labs 11/01/22 05:50 10/30/22 20:33 Labs: Laboratory Results - last 24 hr 10/31/22 10/31/22 11/01/22 14:20 18:24 05:50 WBC 16.7 H 12.9 H RBC 3.55 L 3.03 L Hgb 10.5 L 9.0 L Hct 31.1 L 26.4 L MCV 87.6 87.1 MCH 29.6 29.7 MCHC 33.8 34.1 RDW 14.1 14.3 Plt Count 191 160 Neut % (Auto) 79.5 H 72.2 Lymph % (Auto) 8.8 L 17.7 L [place] % (Auto) 11.1 9.3 Eos % (Auto) 0.0 L 0.5 L Baso % (Auto) 0.6 0.3 Neut # (Auto) 86213 H 9300 H Lymph # (Auto) 1500 2300 [place] # (Auto) 1800 H 1200 H Eos # (Auto) 0 100 Baso # (Auto) 100 0 Urine Color Yellow Urine Appearance Clear Urine pH 5.5 Ur Specific [place] 1.020 Urine Protein Negative Urine Glucose (UA) Negative Urine Ketones Negative Urine Occult Blood 2+ H Urine Nitrate Negative Urine Bilirubin Negative Urine Urobilinogen 0.2 Ur Leukocyte Esterase Negative Urine RBC 1-5/hpf Urine WBC 1-5/hpf Ur Squamous Epith Cells 1-5 /hpf Urine Bacteria None seen Hyaline Casts 0-1/lpf Ur Culture Indicated? Cult not indicated PFS Medical History (Updated 11/01/22 @ 10:19 by Pierre Tracy MD) Chicken pox Fractures History of urinary incontinence Irregular menstrual cycle Measles Mumps Osteoporosis Swallowing difficulty (~2020) Tinnitus Vertigo Vitiligo (~2018) Wears glasses Surgical History (Updated 09/22/22 @ 20:25 by Marianela Dwyer) Anesthesia History of ankle surgery History of section (~1980) History of removal of ovarian cyst History of shoulder surgery (~01/2007) History of surgery on wrist (~2016) Family History (Updated 09/22/22 @ 20:33 by Marianela Dwyer) Father Cancer Smoker Mother Hyperlipidemia Smoker Sister Cancer Diabetes mellitus Smoker Grandfather History of heart disease Smoker Grandmother Smoker Grandfather Vertigo History of heart disease Grandmother Prediabetes Uncle Cancer Smoker Social History household members: spouse Smoking Status: Never smoker alcohol intake: never Discharge Plan Discharge Plan Patient Disposition: Home Provider Discharge Comment: Please review the written discharge instructions you received when you were discharged from the hospital. An order has been placed for a repeat CBC (complete blood count) to be performed on ThursdayNovember 03 at the [facility] lab. I will contact you with those results and if your counts are continuing to fall significantly, I will make arrangements for you to be seen at [facility] to embolize the point of continued internal oozing following her surgery. Your postop visit will be scheduled for 2 weeks after your surgery but I will be happy to see you earlier as needed be. Your catheter will remain in place for 4 weeks and prior to its removal I will order a cystogram which is an x-ray to make sure that the bladder has healed properly. If you have any questions, concerns, or problems please contact me directly by cell phone at [phone], via the office phone at [phone], or via the patient portal. Discharge orders & Medications Prescriptions: New oxycodone 5 mg Tablet 5 mg PO Q4HR PRN (Reason: Pain, Moderate (4-6)) Qty: 12 0RF nitrofurantoin macrocrystal [Macrodantin] 100 mg capsule 100 mg PO BEDTIME Qty: 30 0RF Rx Instructions: must administer with a meal/food Continued estradiol 0.01 % (0.1 mg/gram) cream 1 g vaginal 3XW Qty: 42.5 12RF Rx Instructions: Apply 1 g PV hs x7 days, then PV hs 3 nights weekly oxybutynin chloride 10 mg tablet extended release 24hr 10 mg PO DAILY Follow up/Referrals: Fadumo Bryson ARNP [Primary Care Provider] - Pierre Tracy MD [Physician] - Discharge Health Status Multidrug resistant organism: No MDRO Diet/Activity/Treatments Diet: Diet as Tolerated Activity: As tolerated Catheter comment: Catheter will remain in place for 4 weeks Other treatments: [id number] Tylenol may be used for additional pain relief. [id number] stool softeners and/or MiraLax may be used as needed for constipation. Skin/Wound/Dressing Care Report to your healthcare provider any signs of infection, such as:: chills, fever, increased pain, unusual drainage and unusual redness Dressing: Dressings should be removed on the morning of 11/02/2022 Visit Report/Discharge Packet Instructions: DI for Hysterectomy, DI for Laparoscopy, DI for Prescription Opioid Use Stand Alone Forms: Surgery Discharge Discharge Data Primary Care Provider: Fadumo Bryson
[2022-11-01] MEDS: IRON SUCROSE 300 MG in SODIUM CHLORIDE 0.9% 250 ML 176.667 MG IV (10:51)
--- NOTE | 2022-11-01 11:37 | CM.DPNOTE ---
Discharge Planning Note: Patient has discharge orders and is anxious to return home. Spouse to transport and will assist at home. Tasha Pan RN/DCP
[2022-11-01] MEDS: OXYCODONE IR 5 MG TABLET PO (13:30)
== END 2022-11-01 13:46 | disposition home or self-care (01) | DRG 742 ==
LOC: OR 12:47 → ICU 12:47
PROVIDERS: Internal Medicine; Admitting Provider Obstetrics & Gynecology; PCP Nurse Practitioner Family; Referring Provider Obstetrics & Gynecology; Visit Provider Obstetrics & Gynecology
PROC: 0UT94ZZ Resection of Uterus, Percutaneous Endoscopic Approach (ICD-10-PCS; principal; 2022-10-30 13:30)
PROC: 0UT94ZL Resection of Uterus, Supracervical, Percutaneous Endoscopic Approach (ICD-10-PCS; 2022-10-30 13:30)
DX: N81.2 Incomplete uterovaginal prolapse (principal); K66.1 Hemoperitoneum; D62 Acute posthemorrhagic anemia; N99.71 Accidental puncture and laceration of a genitourinary system organ or structure during a genitourinary system procedure; N95.2 Postmenopausal atrophic vaginitis; I95.81 Postprocedural hypotension
CPT/HCPCS: 36415; 36430; 57240; 58542; 58571; 58999; 74177; 80048; 81001; 83735; 84484; 85025; 86850; 86900; 86901; 94762; P9016; J0171; J0690; J1170; J1756; J1885; J2270; J2405; J2795; J3010; Q9967

== ENCOUNTER → 2022-11-03 08:35 | Outpatient (CLI) | payer MEDICARE, OTHER, SELFPAY ==
[2022-10-30 19:16] VITALS: BMI 29.7
[2022-11-03 09:55] LABS: Add Manual Diff / Slide Review NO; Basophils Absolute Auto 0 /uL (0-100); Basophils Percent Auto 0.3 % (0-2); Eosinophils Absolute Auto 400 /uL (0-450); Eosinophils Percent Auto 3.2 % (2-4); Hematocrit 27.6 % (36-46); Hemoglobin 9.3 g/dL (12.0-16.0); Lymphocytes Absolute Auto 1500 /uL (1100-4500); Lymphocytes Percent Auto 13.3 % (25-40); Mean Corpuscular HGB Conc 33.8 % (30-36); Mean Corpuscular Volume 88.8 fL (80-100); Monocytes Absolute Auto 1000 /uL (0-900); Neutrophils Absolute Auto 8400 /uL (1500-7000); Neutrophils Percent Auto 74.2 % (50-75); Platelet Count 219 X10^3/uL (150-400); Red Blood Cell Count 3.11 X10^6/uL (4.0-5.2); Red Cell Distribution Width 14.2 % (11.6-14.8); White Blood Cell Count 11.3 X10^3/uL (4.5-11.0)
== END ==
PROVIDERS: PCP Nurse Practitioner Family; Referring Provider Obstetrics & Gynecology; Visit Provider Obstetrics & Gynecology
DX: D62 Acute posthemorrhagic anemia (principal)
CPT/HCPCS: 36415; 85025

== ENCOUNTER → 2022-11-27 08:49 | Outpatient (CLI) | payer MEDICARE, OTHER, SELFPAY ==
[2022-10-30 19:16] VITALS: BMI 29.7
--- NOTE | 2022-11-27 08:50 | DI.RAD.S_ITS ---
PROCEDURE: FL CYSTOGRAM INDICATIONS: Incidental cystotomy 10/30/2022, laparoscopic repair COMPARISON: [facility], CT, CT ABDOMEN PELVIS W CON, 10/30/2022, 21:55. FINDINGS: KUB: Preprocedural plant chief film demonstrates a normal bowel gas pattern. A Montes catheter is present. No suspicious abdominal calcifications. Bony structures are unremarkable. Bladder: The filled bladder appears normal in contour. Early images demonstrate no bladder wall trabeculations. No vesicoureteral reflux or contrast extravasation. Postvoid: No significant postvoid residual. IMPRESSION: Normal cystogram. No extravasation of contrast material. Approved by: Ernie Stweart M.D. on 11/27/2022 at 12:58
== END ==
PROVIDERS: PCP Nurse Practitioner Family; Referring Provider Obstetrics & Gynecology; Visit Provider Obstetrics & Gynecology
DX: Z98.890 Other specified postprocedural states (principal); Z09 Encounter for follow-up examination after completed treatment for conditions other than malignant neoplasm
CPT/HCPCS: 74430